=== PATIENT | male | born 1960 | race Two or more races ===

== ENCOUNTER 2023-08-12 23:11 | Emergency (ER) | payer OTHER, MEDICAID ==
[~2023-08-12] VITALS: Ht 182.9 cm; Wt 95.0 kg
[2023-08-12] MEDS ORDERED: CEPH500C PO (23:42)
[2023-08-13] MEDS: predniSONE 20 MG TAB PO ONE (01:38)
[2023-08-13] MEDS: diphenhdrAMINE HCL 25 MG CAP PO ONE (01:38)
[2023-08-13 01:41] VITALS: BP 143/76; PULSE 62; RESP 18; TEMP 97.8; O2SAT 96
== END 2023-08-13 01:43 | disposition home or self-care (01) ==
LOC: ER 23:11
DX: S60.464A Insect bite (nonvenomous) of right ring finger, initial encounter (principal); Z88.8 Allergy status to other drugs, medicaments and biological substances; W57.XXXA Bitten or stung by nonvenomous insect and other nonvenomous arthropods, initial encounter; Y93.89 Activity, other specified; Y92.89 Other specified places as the place of occurrence of the external cause; Y99.8 Other external cause status
CPT/HCPCS: 99283; J7512